=== PATIENT | female | born 1965 | race Caucasian/White ===

== ENCOUNTER 2018-09-02 15:14 | Day surgery (SDC) | payer OTHER ==
[2018-09-02 16:01] LABS: ADD MAN DIFF? NO
[2018-09-02 16:16] LABS: WHITE BLOOD COUNT 9.5 10^3/ul (4.8-10.8)
[2018-09-02 16:16] LABS: BASOPHIL # 0.1 10^3/ul (0.0-0.1); BASOPHILS % 1.1 % (0.0-2.0); EOSINOPHILS # 0.3 10^3/ul (0.0-0.5); EOSINOPHILS % 3.2 % (0.0-7.0); HEMATOCRIT 27.5 % (37.0-47.0); HEMOGLOBIN 7.8 g/dl (12.0-16.0); LYMPHOCYTES # 2.8 10^3/ul (0.8-2.9); LYMPHOCYTES % 29.1 % (15.0-51.0); MEAN CORPUSCULAR HEMOGLOBIN 17.6 pg (29.0-33.0); MEAN CORPUSCULAR HGB CONC 28.4 g/dl (32.0-37.0); MEAN CORPUSCULAR VOLUME 61.9 fl (82.0-101.0); MEAN PLATELET VOLUME 10.6 fl (7.4-10.4); MONOCYTE # 0.6 10^3/ul (0.3-0.9); NEUTROPHIL # 5.7 10^3/ul (1.6-7.5); NEUTROPHILS % 60.4 % (39.0-77.0); PLATELET COUNT 637 10^3/UL (140-415); RED BLOOD COUNT 4.44 10^6/ul (4.20-5.40); RED CELL DISTRIBUTION WIDTH 17.4 % (11.5-14.5)
[2018-09-02 16:18] LABS: INR 0.93; PROTIME 12.6 Sec (11.9-14.9)
[2018-09-02 16:19] LABS: PARTIAL THROMBOPLASTIN TIME 27.2 Sec (23.0-35.0)
[2018-09-02 16:26] LABS: ALBUMIN/GLOBULIN RATIO 0.94; ANION GAP 11 (5-13); ASPARTATE AMINO TRANSFERASE 28 IU/L (15-46); BILIRUBIN,TOTAL 0.2 mg/dl (0.2-1.3); BLOOD UREA NITROGEN 13 mg/dl (7-20); CALCIUM 9.4 mg/dl (8.4-10.2); CARBON DIOXIDE 23 mmol/L (21-31); CHLORIDE 107 mmol/L (97-110); CREATININE 0.54 mg/dl (0.44-1.00); Estimated GFR > 60 mL/min (>60); GLUCOSE 109 mg/dl (70-220); POTASSIUM 3.9 mmol/L (3.5-5.1); SODIUM 141 mmol/L (135-144)
[2018-09-02 16:27] LABS: ALANINE AMINOTRANSFERASE 15 IU/L (13-69); ALBUMIN 3.4 g/dl (3.3-4.9); ALKALINE PHOSPHATASE 71 IU/L (42-121); BILIRUBIN,INDIRECT 0.2 mg/dl (0-1.1)
[2018-09-02 16:50] LABS: POSITIVE DIFF @See below
[2018-09-02] MEDS ORDERED: FENTAnyl 50 MCG/ML VIAL (18:13)
[2018-09-02] MEDS ORDERED: MIDAZOLAM 1 MG/ML 2 ML INJ (18:13)
[2018-09-02] MEDS ORDERED: CEFAZOLIN 1 GM INJ (18:20)
[2018-09-02] MEDS ORDERED: PROPOFOL 20 ML (19:09)
[2018-09-02] MEDS ORDERED: LIDOCAINE 2% (SDV) 5 ML INJ (19:09)
[2018-09-02] MEDS ORDERED: ONDANSETRON 4 MG INJ (19:09)
[2018-09-02] MEDS ORDERED: HYDROmorphONE 1 MG/5 ML IV SYRINGE IV (19:30)
[2018-09-02] MEDS ORDERED: DIPHENHYDRAMINE 50 MG INJ IV (19:30)
[2018-09-02] MEDS ORDERED: DOXYCYCLINE 100 MG TAB PO (19:30)
[2018-09-02] MEDS ORDERED: FENTAnyl 50 MCG/ML VIAL IV (19:30)
[2018-09-02] MEDS ORDERED: MEPERIDINE 25 MG INJ IV (19:30)
[2018-09-02] MEDS: ONDANSETRON 4 MG INJ IV ×2 (19:36→20:41)
[2018-09-02] MEDS: HYDROmorphONE 1 MG/5 ML IV SYRINGE IV ×2 (19:37→19:44)
== END 2018-09-02 21:12 | disposition home or self-care (01) ==
LOC: SDS 15:14
DX: N93.9 Abnormal uterine and vaginal bleeding, unspecified (principal)
CPT/HCPCS: 58558; 71045; 80053; 85025; 85610; 85730; 88305

== ENCOUNTER 2019-04-28 13:51 | Emergency (ER) | payer OTHER ==
[2019-04-28 14:56] LABS: URINE PH (Dip) POC 5.5 (5.0-8.5)
[2019-04-28 14:56] LABS: URINE BLOOD (Dip) POC Negative (NEGATIVE); URINE GLUCOSE (Dip) POC Negative (NEGATIVE); URINE KETONES (Dip) POC 4+ (NEGATIVE); URINE LEUKOCYTE EST (Dip) POC Trace (NEGATIVE); URINE NITRITE (Dip) POC Negative (NEGATIVE); URINE TOTAL PROTEIN POC 1+ (NEGATIVE)
[2019-04-28 15:00] LABS: ABNORMAL IP MESSAGE 1; HEMATOCRIT 30.2 % (37.0-47.0); HEMOGLOBIN 7.7 g/dl (12.0-16.0); MEAN CORPUSCULAR HGB CONC 25.5 g/dl (32.0-37.0); MEAN CORPUSCULAR VOLUME 66.5 fl (82.0-101.0); MEAN PLATELET VOLUME 9.7 fl (7.4-10.4); PLATELET COUNT 669 10^3/UL (140-415); RED BLOOD COUNT 4.54 10^6/ul (4.20-5.40); RED CELL DISTRIBUTION WIDTH 21.9 % (11.5-14.5)
[2019-04-28 15:00] LABS: WHITE BLOOD COUNT 6.6 10^3/ul (4.8-10.8)
[2019-04-28] MEDS: LOPERAMIDE 2 MG CAP PO (15:02)
[2019-04-28] MEDS: ONDANSETRON 4 MG INJ IV (15:02)
[2019-04-28] MEDS: SOD CHLORIDE 0.9% 1,000 ML IV ×2 (15:02→16:28)
[2019-04-28 15:19] LABS: ALANINE AMINOTRANSFERASE 8 IU/L (13-69); ALBUMIN 2.7 g/dl (3.3-4.9); ALBUMIN/GLOBULIN RATIO 0.72; ALKALINE PHOSPHATASE 91 IU/L (42-121); ANION GAP 14 (5-13); ASPARTATE AMINO TRANSFERASE 9 IU/L (15-46); BILIRUBIN,INDIRECT 0.2 mg/dl (0-1.1); BILIRUBIN,TOTAL 0.2 mg/dl (0.2-1.3); BLOOD UREA NITROGEN 5 mg/dl (7-20); CALCIUM 9.2 mg/dl (8.4-10.2); CARBON DIOXIDE 14 mmol/L (21-31); CHLORIDE 113 mmol/L (97-110); CREATININE 0.71 mg/dl (0.44-1.00); Estimated GFR > 60 mL/min (>60); GLUCOSE 63 mg/dl (70-220); LIPASE 26 U/L (23-300); POTASSIUM 4.1 mmol/L (3.5-5.1); SODIUM 141 mmol/L (135-144); TOTAL PROTEIN 6.4 g/dl (6.1-8.1)
[2019-04-28 15:49] LABS: ADD MAN DIFF? YES; POSITIVE DIFF @See below
[2019-04-28 20:27] LABS: ANISOCYTOSIS 2+ (0-0); BAND NEUTROPHILS #M 0.3 10^3/ul (0.0-0.6); BAND NEUTROPHILS % (M) 5 % (0-4); BASOPHILS % (M) 1 % (0-2); BURR CELLS 3+ (0-0); EOSINOPHILS % (M) 1 % (0-7); ERYTHROBLAST% (NRBC) (M) 1 % (0-0); GIANT THROMBO% (M) 1 % (0-0); HYPOCHROMASIA 1+ (0-0); LYMPHOCYTES #M 1.5 10^3/ul (0.8-2.9); LYMPHOCYTES % (M) 24 % (15-51); MICROCYTOSIS 2+ (0-0); MONOCYTE #M 0.5 10^3/ul (0.3-0.9); MONOCYTES % (M) 9 % (0-11); OVALOCYTES 1+ (0-0); PLATELET ESTIMATE INCREASED; POIKILOCYTOSIS 3+ (0-0); POLYCHROMASIA 1+ (0-0); REACTIVE LYMPHOCYTES #M 0.1 10^3/ul (0.0-0.0); REACTIVE LYMPHOCYTES% (M) 2 % (0-0); SEG NEUT #M 3.8 10^3/ul (1.6-7.5); SEGMENTED NEUTROPHILS (M) % 58 % (39-77); SMUDGE%M 50 % (0-0)
== END 2019-04-28 18:33 | disposition home or self-care (01) ==
LOC: E/R 13:51
DX: K80.20 Calculus of gallbladder without cholecystitis without obstruction (principal); E86.0 Dehydration; D64.9 Anemia, unspecified; J45.909 Unspecified asthma, uncomplicated
CPT/HCPCS: 36415; 80053; 81003; 81025; 83690; 85025; 96374; 99284-25